=== PATIENT | female | born 1955 ===

== ENCOUNTER 2021-08-08 06:14 | Day surgery (SDC) | payer OTHER ==
[~2021-08-08 06:14] MED LIST: ALBUTERO IH; COZAAR50 MG PO; SIMVAST PO; SYNTHROID50 MCG PO; TOPROL XL100 M1 PO
[2021-08-08] MEDS ORDERED: TYLENOL325 MG PO (08:15)
== END 2021-08-08 17:40 | disposition home or self-care (01) ==
LOC: CIR.AMB 06:14
PROVIDERS: ATTEND Obstetrics & Gynecology Gynecology
DX: C54.1 Malignant neoplasm of endometrium (principal); Z20.822 Contact with and (suspected) exposure to COVID-19; Z88.6 Allergy status to analgesic agent; J45.909 Unspecified asthma, uncomplicated; E78.00 Pure hypercholesterolemia, unspecified; I10 Essential (primary) hypertension; E03.9 Hypothyroidism, unspecified